=== PATIENT | male | born 1955 | race Caucasian/White ===

== ENCOUNTER 2017-01-31 10:13 | Emergency (ER) | payer OTHER ==
[~2017-01-31] VITALS: Ht 175.3 cm; Wt 68.0 kg
[2017-01-31 10:31] VITALS: BP 149/89
[2017-01-31] MEDS ORDERED: CefTRIAXone SODIUM 1 GM/VIAL IM ONE (10:45)
[2017-01-31] MEDS ORDERED: LIDOCAINE HCL/PF 1% 2 ML VIAL IM ONE (10:45)
[2017-01-31] MEDS ORDERED: IBUPROFEN 800 MG TABLET PO ONE (11:00)
== END 2017-01-31 11:31 | disposition home or self-care (01) ==
LOC: EMS 10:15
DX: H00.031 Abscess of right upper eyelid (principal); J06.9 Acute upper respiratory infection, unspecified
CPT/HCPCS: 96372; 99283; J0696; J3490